=== PATIENT | female | born 2000 | race Caucasian/White ===

== ENCOUNTER 2022-01-14 11:31 | Emergency (ER) | payer OTHER, SELFPAY ==
[2022-01-14] VITALS (18 sets, daily range): BP systolic 116–137; BP diastolic 43–96; PULSE 93–120; RESP 15–25; TEMP 36.4–36.9; O2SAT 98–100
--- NOTE | ~2022-01-14 | XR_ITS ---
EXAMINATION: XR chest 2V EXAM DATE: 01/14/2022 12:07 INDICATION: Dizziness and tachycardia. TECHNIQUE: Frontal and lateral projections of the chest obtained and reviewed. Comparison is made to prior examination from 06/03/2020. FINDINGS: The lungs are clear. There are no pleural effusions. The cardiomediastinal silhouette is within normal limits. There is no pneumothorax suspected. The bones and soft tissues are unremarkab le. IMPRESSION: Unremarkable chest x-ray exam. Reviewed, dictated and finalized at location B.
--- NOTE | 2022-01-14 11:49 | ECG_ITS ---
Measurements Intervals [place] Rate: 103 P: 57 OR: 141 QRS: 75 QRSD: 105 T: 38 QT: 346 QTc: 453 Interpretive Statements SINUS TACHYCARDIA INDETERMINATE AXIS ABNORMAL ECG NO PREVIOUS ECG AVAILABLE FOR COMPARISON Electronically Signed On 01-14-2022 15:52:22 CDT by Hair Aguilar M.D.
[2022-01-14 12:05] LABS: Basophils Absolute Auto 0.1 K/mm3 (0.0-0.1); Basophils Percent Auto 0.7 % (0.2-1.2); Eosinophils Absolute Auto 0.1 K/mm3 (0-0.3); Eosinophils Percent Auto 1.6 % (0-4.4); Hematocrit 43.2 % (37.0-47.0); Hemoglobin 14.4 g/dL (12.0-15.0); Immature Granulocyte Absolute 0.01 K/mm3 (0.00-0.031); Immature Granulocyte Percent A 0.1 % (0-0.5); Lymphocytes Absolute Auto 3.12 K/mm3 (0.9-3.2); Mean Corpuscular HGB Conc 33.3 g/dl (32-36); Mean Corpuscular Hemoglobin 30.2 pg (26-34); Mean Corpuscular Volume 90.6 fl (80-100); Mean Platelet Volume 10.8 fl (7.4-10.4); Monocytes Absolute Auto 0.5 K/mm3 (0.1-0.6); Monocytes Percent Auto 7.8 % (2.6-8.5); Neutrophils Absolute Auto 3.1 K/mm3 (1.3-6.7); Neutrophils Percent Auto 44.8 % (45.5-73.1); Platelet Count Result 321 k/mm3 (150-375); Red Blood Count 4.77 M/mm3 (4.2-5.4); Red Cell Distribution Width 12.5 % (11.5-14.5); White Blood Count 6.9 K/mm3 (4.5-10.0)
[2022-01-14] MEDS: SODIUM CHLORIDE 0.9% IV 1,000 ML 999 ML IV CONT (12:07)
[2022-01-14 12:11] LABS: Alanine Aminotransferase 22 U/L (4-35); Albumin Level 5.1 g/dL (3.5-5.1); Alkaline Phosphatase 69 U/L (38-126); Anion Gap 10 mmol/L (8-16); Aspartate Amino Transferase 35 U/L (14-36); Bilirubin,Total 0.5 mg/dL (0.2-1.3); Blood Urea Nitrogen 17 mg/dL (7-17); Calcium 9.5 mg/dL (8.4-10.2); Carbon Dioxide 24 mmol/L (22-30); Chloride 106 mmol/L (98-107); Estimated CRCL calculation 93 ml/min; Estimated Glomerular Filt Rate > 60; Glucose 96 mg/dL (65-110); Potassium 3.6 mmol/L (3.4-5.0); Sodium 140 mmol/L (137-145)
--- NOTE | 2022-01-14 12:20 | ED.DIZZY ---
HPI - Dizziness General Chief Complaint: Dizziness <OPAL Martinez Last Filed: 01/14/22 14:45> Stated Complaint: tachycardia <OPAL Martinez Last Filed: 01/14/22 14:45> Time Seen by Provider: 01/14/22 11:42 <OPAL Martinez Last Filed: 01/14/22 14:45> Source: patient <OPAL Martinez Last Filed: 01/14/22 14:45> Mode of arrival: ambulatory <POAL Martinez Last Filed: 01/14/22 14:45> Limitations: no limitations <OPAL Martinez Last Filed: 01/14/22 14:45> History of Present Illness HPI Narrative: This is a 21 year old female that presents to the ER for a near syncopal episode today. Reports she was sitting in class and started to feel like her heart was racing. She felt sweaty and lightheaded like she could pass out. Reports a mild headache currently, otherwise has no complaints. Reports similar episodes in the past, she has not been evaluated for this before. Denies vision changes, vomiting, numbness, or weakness. <OPAL Martinez Last Filed: 01/14/22 14:45> Related Data Home Medications: Home Medications Medication Instructions Recorded Confirmed albuterol sulfate 2.5 mg INHALATION Q4-6H PRN 05/25/20 budesonide-formoterol HFA 160 2 puff INHALATION Q12H 05/25/20 mcg-4.5 mcg/actuation aerosol inhaler fexofenadine 180 mg tablet 180 mg PO DAILY 05/25/20 medroxyprogesterone 150 mg/mL 150 mg IM [id number] 05/25/20 intramuscular suspension montelukast 10 mg tablet 10 mg PO DAILY 05/25/20 multivitamin 1 tablet PO DAILY 05/25/20 pseudoephedrine HCl 30 mg tablet 30 mg PO Q4-6H PRN 05/25/20 <OPAL Martinez Last Filed: 01/14/22 14:45> Allergies/Adverse Reactions: Allergies Allergy/AdvReac Type Severity Reaction Status Date / Time No Known Allergies Allergy Unverified 01/14/22 12:08 <Mackenzie Velazquez PA-C - Last Filed: 01/14/22 14:45> Review of Systems Review of Systems: CONSTITUTIONAL: Denies fever CARDIOVASCULAR: Reports palpitations. Denies chest pain RESPIRATORY: Denies dyspnea. GASTROINTESTINAL: Denies vomiting NEUROLOGIC: Reports headache. Denies numbness, or weakness. PSYCHIATRIC: Reports anxiety and depression. <Mackenzie Velazquez PA-C - Last Filed: 01/14/22 14:45> All systems reviewed & are unremarkable except as noted in HPI and below <Mackenzie Velazquez PA-C - Last Filed: 01/14/22 14:45> PMFSH Past Medical History Medical History: Medical History (Updated 01/14/22 @ 14:33 by Mackenzie Velazquez PA-C) Allergies Asthma History of frequent headaches <Mackenzie Velazquez PA-C - Last Filed: 01/14/22 14:45> Surgical History Surgical History: Surgical History History of placement of ear tubes <Mackenzie Velazquez PA-C - Last Filed: 01/14/22 14:45> Family History Family History: Family History Mother Anxiety Father Depression Grandparent Cerebrovascular accident Grandparent Diverticular disease Grandparent Hypertension <Mackenzie Velazquez PA-C - Last Filed: 01/14/22 14:45> Social History Social History: Social History Smoking status: Never smoker Alcohol intake: never Substance use: never <Mackenzie Velazquez PA-C - Last Filed: 01/14/22 14:45> Exam Narrative: GENERAL: Well-appearing, well-nourished, and in no acute distress. HEAD: Normocephalic, atraumatic. EYES: PERRLA and EOMI. ENT: Nares clear, no rhinorrhea or epistaxis. Mucous membranes moist. Oropharynx without tonsillar hypertrophy exudate or other lesions. Bilateral TMs pearly braun non-bulging NECK: Supple. No adenopathy or masses. CHEST: Clear to auscultation. No respiratory distress. No wheezes rales or rhonchi HEART: Regular rate and rhythm. No murmur heard. Normal peripheral pulses. EXTREMITIES: Normal range of motion.
[2022-01-14 12:22] LABS: Add Urine Microscopic? YES; Appearance Urine Clear (Clear); Bilirubin Urine 1+ (Negative); Blood Urine 1+ (Negative); Color Urine Yellow (Yellow); Glucose Urine UA Negative (Negative); Ketones Urine Negative (Negative); Leukocyte Esterase Ur 1+ LEU/UL (Negative); Nitrate Urine Negative (Negative); Protein Urine 1+ mg/dL (Negative); Specific Grav Ur 1.025 (1.001-1.035); Urobilinogen Urine 0.2 mg/dL (<2.0)
[2022-01-14 12:27] LABS: Bacteria Urine Trace /hpf; Mucus Urine Heavy /lpf; Squamous Epithelial Cell Urine Many /hpf (Few); WBC Urine 16-20 /hpf
[2022-01-14] MEDS: ACETAMINOPHEN 500 MG TABLET 1000 MG PO (12:48)
--- NOTE | 2022-01-14 14:14 | PC.NURSE ---
patient requesting to have STI test. ok to run off urine in lab.
--- NOTE | 2022-01-19 12:41 | WPDHOLTEREM ---
Holter/Event Monitor Holter/Event Monitor Date of procedure: 01/14/22 Holter/Event Procedure: 48 Hr Holter Monitor Indications: Palpitations Conclusion: 1. 48 hour holter monitor on 01/14/22. 2. Underlying rhythm is sinus rhythm. HR range 58-176 bpm; average HR 106 bpm. HR at 176 bpm was at 13:04. 3. No premature supraventricular complexes. No supraventricular tachycardia. 4. There are 3 premature ventricular complexes. No ventricular tachycardia. 5. No sinoatrial or atrioventricular blocks. No significant pauses greater than 2 seconds. 6. No symptoms available for correlation.
== END 2022-01-14 14:41 | disposition home or self-care (01) ==
PROVIDERS: Physician Assistant; Emergency Provider General Practice
DX: R55 Syncope and collapse (principal); J45.909 Unspecified asthma, uncomplicated
CPT/HCPCS: 36415; 71046; 80053; 81001; 81025; 85025; 87086; 87088; 87491; 87591; 87661; 93005; 93225; 93226; 96360; 99284; A9270; J7030

== ENCOUNTER → 2022-08-18 08:58 | Outpatient (CLI) | payer OTHER, SELFPAY ==
--- NOTE | ~2022-08-18 | US_ITS ---
EXAMINATION: US transvaginal DATE: 08/18/2022 09:20 INDICATION: Left lower quadrant pain Comparison:No prior studies for comparison. TECHNIQUE: Multiple transabdominal and endovaginal sonographic images of the pelvis performed. FINDINGS: The uterus measures 5.5 x 1.9 x 3 cm. The endometrial complex measures 3 mm. The right ovary measures 3.4 x 2.3 x 2.1 cm and the left ovary measures 2.8 x 2.3 x 2.1 cm. There ar e small follicles in each ovary. Normal doppler signal in both ovaries. There is no free fluid in the pelvis. There are no abnormal masses seen on either side. IMPRESSION: 1. Unremarkable pelvic ultrasound. Reviewed, dictated and finalized at location A. HEN STEWARD/STEWARDESS
== END ==
PROVIDERS: PCP Obstetrics & Gynecology; Visit Provider Obstetrics & Gynecology
DX: R10.32 Left lower quadrant pain (principal); N91.2 Amenorrhea, unspecified
CPT/HCPCS: 76830

== ENCOUNTER 2022-10-30 19:13 | Emergency (ER) | payer BC, SELFPAY ==
--- NOTE | ~2022-10-30 | CT_ITS ---
EXAMINATION: CT abdomen pelvis w con DATE: 10/31/2022 00:07 INDICATION: Constipation. Nausea. TECHNIQUE: Computed tomography (CT) of the abdomen and pelvis was performed with 100 mL Omnipaque 350 intravenous contrast. Automated exposure control and iterative reconstruction technique were employe d. The dose-length product was 351.39 mGy-cm. COMPARISON: None. FINDINGS: The visualized portions of the lung bases are clear without pneumonia or pleural effusion. The heart size is normal. No pericardial effusion. The liver, gallbladder, are normal. Calcifications in the spleen are consistent with old granulomatous disease. The pancreas, adrenal glands, and kidne ys are normal. There are no dilated loops of bowel. The appendix is normal. There is fat stranding ar ound the rectum. There are enlarged perirectal lymph nodes measuring up to 11 x 12 mm. There is no fr ee intraperitoneal fluid. There are changes of posterior fusion procedure at L5-S1. IMPRESSION: 1. Perirectal fat stranding, consistent with inflammation versus infection. 2. Perirectal lymphadenopathy. Reviewed, dictated and finalized at location A. K MIXER
[2022-10-30 19:15] VITALS: BP 137/78; PULSE 108; RESP 18; TEMP 36.3; O2SAT 99
[2022-10-30 19:46] LABS: Basophils Percent Auto 0.5 % (0.2-1.2); Eosinophils Absolute Auto 0.3 K/mm3 (0-0.3); Eosinophils Percent Auto 3.9 % (0-4.4); Hematocrit 43.9 % (37.0-47.0); Hemoglobin 14.9 g/dL (12.0-15.0); Immature Granulocyte Absolute 0.02 K/mm3 (0.00-0.031); Immature Granulocyte Percent A 0.2 % (0-0.5); Lymphocytes Absolute Auto 3.27 K/mm3 (0.9-3.2); Lymphocytes Percent Auto 40.6 % (18.3-44.2); Mean Corpuscular HGB Conc 33.9 g/dl (32-36); Mean Corpuscular Hemoglobin 31.3 pg (26-34); Mean Corpuscular Volume 92.2 fl (80-100); Mean Platelet Volume 10.3 fl (7.4-10.4); Monocytes Absolute Auto 0.9 K/mm3 (0.1-0.6); Monocytes Percent Auto 10.6 % (2.6-8.5); Neutrophils Absolute Auto 3.6 K/mm3 (1.3-6.7); Neutrophils Percent Auto 44.2 % (45.5-73.1); Platelet Count Result 282 k/mm3 (150-375); Red Blood Count 4.76 M/mm3 (4.2-5.4); Red Cell Distribution Width 12.4 % (11.5-14.5); White Blood Count 8.1 K/mm3 (4.5-10.0)
[2022-10-30 19:47] LABS: Appearance Urine Slightly Cloudy (Clear); Bilirubin Urine Negative (Negative); Blood Urine Negative (Negative); Color Urine Yellow (Yellow); Glucose Urine UA Negative (Negative); Ketones Urine Negative (Negative); Leukocyte Esterase Ur Negative LEU/UL (Negative); Nitrate Urine Negative (Negative); Protein Urine Negative (Negative); Specific Grav Ur 1.015 (1.001-1.035); Urobilinogen Urine 0.2 mg/dL (<2.0)
[2022-10-30 19:52] LABS: Amorphous Sediment Urine Few; Bacteria Urine 2+ /hpf; Mucus Urine Rare /lpf; RBC Urine 0-2 /hpf (0-2); Squamous Epithelial Cell Urine Few /hpf (Few)
[2022-10-30 19:53] LABS: Add Urine Microscopic? YES
[2022-10-30 20:40] LABS: Alanine Aminotransferase 21 U/L (6-35); Albumin Level 4.6 g/dL (3.5-5.1); Alkaline Phosphatase 64 U/L (38-126); Anion Gap 7 mmol/L (8-16); Aspartate Amino Transferase 27 U/L (14-36); Bilirubin,Total 0.4 mg/dL (0.2-1.3); Blood Urea Nitrogen 12 mg/dL (7-17); Carbon Dioxide 29 mmol/L (22-30); Chloride 101 mmol/L (98-107); Estimated CRCL calculation 95 ml/min; Estimated Glomerular Filt Rate > 60; Glucose 100 mg/dL (65-110); Lipase 47 U/L (23-300); Potassium 3.6 mmol/L (3.4-5.0); Sodium 137 mmol/L (137-145)
[2022-10-30] MEDS: SODIUM CHLORIDE 0.9% IV 1,000 ML 999 ML IV CONT (22:00)
--- NOTE | 2022-10-30 22:13 | PC.NURSE ---
Patient reports issues with constipation. Patient reports trying OTC medications without relief.
--- NOTE | 2022-10-30 22:36 | ED.ABDPAIN ---
HPI - Abdominal Pain General Chief Complaint: Abdominal Pain Stated Complaint: constipation Time Seen by Provider: 10/30/22 21:33 Source: patient Mode of arrival: ambulatory Limitations: no limitations History of Present Illness HPI narrative: This is a 22 year old female that presents to the ER for abdominal pain and constipation. Ongoing over the last 5 days. Reports she has taken stool softeners and used an enema without relief. Reports some nausea. Also reports difficulty urinating. Denies fever, vomiting,, hematuria, or hematochezia. Related Data Home Medications Medication Instructions Recorded Confirmed albuterol sulfate 2.5 mg/3 mL 2.5 mg inhalation Q4-6H PRN 05/25/20 (0.083 %) solution for nebulization bronchospasm budesonide-formoterol HFA 160 2 puff inhalation Q12H 05/25/20 mcg-4.5 mcg/actuation aerosol inhaler (Symbicort) fexofenadine 180 mg tablet 180 mg PO DAILY 05/25/20 (Mily Allergy) medroxyprogesterone 150 mg/mL 150 mg IM [id number] 05/25/20 intramuscular suspension (Depo-Provera) montelukast 10 mg tablet 10 mg PO DAILY 05/25/20 multivitamin 1 tablet PO DAILY 05/25/20 pseudoephedrine HCl 30 mg tablet 30 mg PO Q4-6H PRN 05/25/20 (Sudafed) Allergies Allergy/AdvReac Type Severity Reaction Status Date / Time No Known Allergies Allergy Verified 10/30/22 19:18 Review of Systems Review of Systems: CONSTITUTIONAL: Denies fever GASTROINTESTINAL: Reports abdominal pain, nausea. Denies vomiting, or diarrhea. GENITOURINARY: Denies dysuria or hematuria. All systems reviewed & are unremarkable except as noted in HPI and below PMFSH Past Medical History Medical History (Updated 10/31/22 @ 01:00 by Mackenzie Velazquez PA-C) Allergies Asthma History of frequent headaches Surgical History Surgical History History of placement of ear tubes Family History Family History Mother Anxiety Father Depression Grandparent Cerebrovascular accident Grandparent Diverticular disease Grandparent Hypertension Social History Social History Smoking status: Never smoker Alcohol intake: never Substance use: never Exam Narrative: GENERAL: Well-appearing, well-nourished, and in no acute distress. HEAD: Normocephalic, atraumatic. EYES: EOMI. CHEST: Clear to auscultation. No respiratory distress. No wheezes rales or rhonchi HEART: Regular rate and rhythm. No murmur heard. Normal peripheral pulses. ABDOMEN: Soft, nondistended, normal active bowel sounds. Tender to palpation to the left lower abdomen, without guarding. No CVA tenderness EXTREMITIES: Normal range of motion. No edema. SKIN: Warm, dry, no rash. NEURO: No focal deficits. Alert and oriented x3. PSYCH: Normal mood and affect RECTAL: Anal fissure noted without active bleeding Course Course Emergency Course: Patient updated on work-up and agrees with plan of care Consultations Consultation #1: Spoke with gastroenterology about patient and work-up who recommends close follow-up for colonoscopy Date: 10/31/22 Vital Signs Vital signs: Vital Signs Temperature 97.4 F L 10/30/22 19:15 Pulse Rate 108 H 10/30/22 19:15 Respiratory Rate 18 10/30/22 19:15 Blood Pressure 137/78 10/30/22 19:15 Pulse Oximetry 99 10/30/22 19:15 Oxygen Delivery Room Air 10/30/22 19:15 Temperature 97.4 F L 10/30/22 19:15 Pulse Rate 108 H 10/30/22 19:15 Respiratory Rate 18 10/30/22 19:15 Blood Pressure 137/78 10/30/22 19:15 Pulse Oximetry 99 10/30/22 19:15 Oxygen Delivery Room Air 10/30/22 19:15 MDM - Abdominal Pain MDM Narrative Medical decision making narrative: Patient presents emergency department for abdominal discomfort and constipation. Ongoing over the last 4 days. She is afebrile and nontoxic-appearing. Abdomen is soft
[2022-10-30 23:50] LABS: Pregnancy On Board Control Positive; Urine Pregnancy Test Negative
== END 2022-10-31 01:07 | disposition home or self-care (01) ==
PROVIDERS: Emergency Medicine; Emergency Provider Physician Assistant; PCP Obstetrics & Gynecology
DX: K62.89 Other specified diseases of anus and rectum (principal); K60.2 Anal fissure, unspecified; R82.71 Bacteriuria; J45.909 Unspecified asthma, uncomplicated
CPT/HCPCS: 36415; 74177; 80053; 81001; 81025; 83690; 85025; 87086; 96360; 99284; J7030; Q9967

== ENCOUNTER 2022-12-21 00:29 | Day surgery (SDC) | payer OTHER, SELFPAY ==
[2022-12-07 14:58] VITALS: BMI 25.8
[2022-12-21 11:30] VITALS: BP 111/80; PULSE 105; RESP 16; TEMP 36.7; O2SAT 100; BMI 25.2
[2022-12-21] MEDS: LACTATED RINGERS 1,000 ML 150 ML IV CONT (11:40)
--- NOTE | 2022-12-21 12:06 | P.PNAN_ITS ---
Anes - Initial Pre Proc Eval Procedure: Operation Date: 12/21/22 12:30 Proposed Procedures p Colonoscopy - Sd Vazquez MD Date/Time: 12/21/22 12:06 Surgeon: Sd Vazquez MD Pre Op Diagnosis: Abnormal CT,change in consistency of stools Patient Data Age: 22 Gender: F Height: 1.63 m Weight: 66.6 kg Last Vital Signs Temp 98.1 F 12/21/22 11:30 Pulse 105 H 12/21/22 11:30 Resp 16 12/21/22 11:30 BP 111/80 12/21/22 11:30 Pulse Ox 100 12/21/22 11:30 O2 Del Method Room Air 12/21/22 11:30 Allergies Allergy/AdvReac Type Severity Reaction Status Date / Time No Known Allergies Allergy Verified 12/21/22 11:25 Home Medications Medication Instructions Recorded Confirmed Type albuterol sulfate 2.5 mg/3 mL 2.5 mg inhalation Q4-6H PRN 05/25/20 12/21/22 History (0.083 %) solution for nebulization bronchospasm budesonide-formoterol HFA 160 2 puff inhalation Q12H PRN 05/25/20 12/21/22 History mcg-4.5 mcg/actuation aerosol shortness of breath inhaler (Symbicort) montelukast 10 mg tablet 10 mg PO DAILY PRN other 05/25/20 12/21/22 History multivitamin 1 tablet PO DAILY 05/25/20 12/21/22 History atomoxetine 40 mg capsule 40 mg PO DAILY 11/11/22 12/21/22 History propranolol 40 mg tablet 40 mg PO DAILY 11/11/22 12/21/22 History Patient hx anesthesia problems: none Family hx anesthesia problems: none Results Review: All pre-operative results and documents have been reviewed as part of the pre- operative evaluation. [facility] Past Medical History Medical History (Updated 11/11/22 @ 09:28 by IVAN Terrazas) Allergies Asthma Constipation History of frequent headaches Surgical History Surgical History History of placement of ear tubes Family History Family History Mother Anxiety Father Depression Grandparent Cerebrovascular accident Grandparent Diverticular disease Grandparent Hypertension Social History Social History Smoking status: Never smoker Alcohol intake: current Alcohol use details: occasionally Substance use: never Substance use type: does not use Living arrangements: with family Spiritual care concerns: No Anes - Eval Final PreProcedure Day of Procedure 12/21/22 12:06 Patient weight: normal Heart: regular rate and rhythm Lungs: clear to auscultation Airway: Mallampati scale class II Neurological: alert and oriented Last oral intake: >/= 8 hours ASA classification: II Emergent: no Anesthetic plan: proceed Anesthesia type and monitoring: general GIVS and standard monitoring Results Review: All pre-operative results and documents have been reviewed as part of the pre- operative evaluation. Informed Consent: The patient's anesthetic plan and its attendant risks and benefits were discussed with the patient/family/POA. Questions were solicited and answers provided to the satisfaction of the patient/family/POA.
--- NOTE | 2022-12-21 12:11 | P.PNAN_ITS ---
Anes - Initial Pre Proc Eval Procedure: Operation Date: 12/21/22 12:30 Proposed Procedures p Colonoscopy - Sd Vazquez MD Date/Time: 12/21/22 12:11 Surgeon: Sd Vazquez MD Pre Op Diagnosis: Abnormal CT,change in consistency of stools Patient Data Age: 22 Gender: F Height: 1.63 m Weight: 66.6 kg Last Vital Signs Temp 98.1 F 12/21/22 11:30 Pulse 105 H 12/21/22 11:30 Resp 16 12/21/22 11:30 BP 111/80 12/21/22 11:30 Pulse Ox 100 12/21/22 11:30 O2 Del Method Room Air 12/21/22 11:30 Allergies Allergy/AdvReac Type Severity Reaction Status Date / Time No Known Allergies Allergy Verified 12/21/22 11:25 Home Medications Medication Instructions Recorded Confirmed Type albuterol sulfate 2.5 mg/3 mL 2.5 mg inhalation Q4-6H PRN 05/25/20 12/21/22 History (0.083 %) solution for nebulization bronchospasm budesonide-formoterol HFA 160 2 puff inhalation Q12H PRN 05/25/20 12/21/22 History mcg-4.5 mcg/actuation aerosol shortness of breath inhaler (Symbicort) montelukast 10 mg tablet 10 mg PO DAILY PRN other 05/25/20 12/21/22 History multivitamin 1 tablet PO DAILY 05/25/20 12/21/22 History atomoxetine 40 mg capsule 40 mg PO DAILY 11/11/22 12/21/22 History propranolol 40 mg tablet 40 mg PO DAILY 11/11/22 12/21/22 History Patient hx anesthesia problems: none Family hx anesthesia problems: none Results Review: All pre-operative results and documents have been reviewed as part of the pre- operative evaluation. [facility] Past Medical History Medical History (Updated 11/11/22 @ 09:28 by IVAN Terrazas) Allergies Asthma Constipation History of frequent headaches Surgical History Surgical History History of placement of ear tubes Family History Family History Mother Anxiety Father Depression Grandparent Cerebrovascular accident Grandparent Diverticular disease Grandparent Hypertension Social History Social History Smoking status: Never smoker Alcohol intake: current Alcohol use details: occasionally Substance use: never Substance use type: does not use Living arrangements: with family Spiritual care concerns: No Anes - Eval Final PreProcedure Day of Procedure 12/21/22 12:11 Patient weight: normal Heart: regular rate and rhythm Lungs: clear to auscultation Airway: Mallampati scale class II Neurological: alert and oriented Last oral intake: >/= 8 hours ASA classification: II Emergent: no Anesthetic plan: proceed Anesthesia type and monitoring: general GIVS and standard monitoring Results Review: All pre-operative results and documents have been reviewed as part of the pre- operative evaluation. Informed Consent: The patient's anesthetic plan and its attendant risks and benefits were discussed with the patient/family/POA. Questions were solicited and answers provided to the satisfaction of the patient/family/POA.
--- NOTE | 2022-12-21 12:31 | PM.HPGS ---
History of Present Illness History of Present Illness Consent: Risks, benefits, and alternatives have been discussed and questions answered. Patient agrees to proceed with procedure. Chief complaint: Abnormal CT,change in consistency of stools Narrative: Kecia Nino is a 22 year old female with constipation about 5 weeks ago that prompted ER visit, CT scan showed possible proctitis. Better now with dulcolax and miralax. Review of Systems Constitutional: Constitutional: Denies headache(s) and Denies weakness Eyes: Eyes: Denies blurry vision ENT: Reports Normal hearing present, Denies headache(s) and Denies neck pain Cardiovascular: Cardiovascular: Denies chest pain and Denies dyspnea Respiratory: Respiratory: Denies dyspnea Gastrointestinal: Gastrointestinal: Reports no additional gastrointestinal complaints Genitourinary: Genitourinary: Denies dysuria Musculoskeletal: Musculoskeletal: Denies neck pain Integumentary/Breasts: Skin/Breast: Denies dry skin Neurologic: Reports Normal hearing present, Denies headache(s) and Denies weakness Psychiatric: Psychiatric: Denies anxiety Endocrine: Endocrine: Denies change in body appearance Hematologic/Lymphatic: Hematologic/Lymphatic: Denies easy bleeding Allergic/Immunologic: Allergic/Immunologic: Denies urticaria PMFSH Past Medical History Medical History (Updated 12/21/22 @ 12:32 by Sd Vazquez MD) Abnormal CT scan, colon Allergies Asthma Constipation History of frequent headaches Surgical History Surgical History History of placement of ear tubes Family History Family History Mother Anxiety Father Depression Grandparent Cerebrovascular accident Grandparent Diverticular disease Grandparent Hypertension Social History Social History Smoking status: Never smoker Alcohol intake: current Alcohol use details: occasionally Substance use: never Substance use type: does not use Living arrangements: with family Spiritual care concerns: No Meds Home Medications and Allergies Home Medications Medication Instructions Recorded Confirmed Type albuterol sulfate 2.5 mg/3 mL 2.5 mg inhalation Q4-6H PRN 05/25/20 12/21/22 History (0.083 %) solution for nebulization bronchospasm budesonide-formoterol HFA 160 2 puff inhalation Q12H PRN 05/25/20 12/21/22 History mcg-4.5 mcg/actuation aerosol shortness of breath inhaler (Symbicort) montelukast 10 mg tablet 10 mg PO DAILY PRN other 05/25/20 12/21/22 History multivitamin 1 tablet PO DAILY 05/25/20 12/21/22 History atomoxetine 40 mg capsule 40 mg PO DAILY 11/11/22 12/21/22 History propranolol 40 mg tablet 40 mg PO DAILY 11/11/22 12/21/22 History Allergies Allergy/AdvReac Type Severity Reaction Status Date / Time No Known Allergies Allergy Verified 12/21/22 11:25 Vital Signs Vital Signs - 24 hr 12/21/22 11:30 Temperature 98.1 F Pulse Rate 105 H Respiratory Rate 16 Blood Pressure 111/80 Pulse Oximetry 100 Oxygen Delivery Room Air Exam Const: General: comfortable and no acute distress HENMT: Face/Nose/Sinus: Normal nares present Eyes: General: appearance normal, both eyes and all related structures Neck: Neck: no JVD Resp: Auscultation: clear to auscultation bilaterally Cardio: Rate: regular rate Rhythm: regular rhythm GI: Inspection: non-distended GI Palp: Yes Soft to palpation Skin: General skin exam: normal color Neuro: General: gait normal Speech: normal speech Extrem: General: normal to inspection Psych: Mental Status: mental status grossly normal Assessment and Plan Assessment and plan (1) Abnormal CT scan, colon: Code(s): R93.3 - Abnormal findings on diagnostic imaging of other parts of digestive tract Status: Acute Assessment and Any
[2022-12-21 12:46] VITALS: BP 102/45; PULSE 97; RESP 26; O2SAT 100
[2022-12-21 12:56] VITALS: BP 112/71; PULSE 86; RESP 19; O2SAT 100
[2022-12-21 13:06] VITALS: BP 110/66; PULSE 84; RESP 18; O2SAT 98
== END 2022-12-21 13:10 | disposition home or self-care (01) ==
PROVIDERS: Visit Provider Internal Medicine Gastroenterology
PROC: 0DJD8ZZ Inspection of Lower Intestinal Tract, Via Natural or Artificial Opening Endoscopic (ICD-10-PCS; CPT 45378; principal; 2022-12-21 12:30)
DX: K59.00 Constipation, unspecified (principal); J45.909 Unspecified asthma, uncomplicated; Z79.51 Long term (current) use of inhaled steroids
CPT/HCPCS: 45378; J2704; J7120